=== PATIENT | male | born 1965 | race African-American/Black ===

== ENCOUNTER 2017-09-06 17:21 | Emergency (ER) | payer OTHER ==
[~2017-09-06] VITALS: Ht 185.4 cm; Wt 105.0 kg
[2017-09-06 20:46] LABS: HEMATOCRIT 43.9 % (38.0-50.0); HEMOGLOBIN 14.1 G/DL (12.5-16.6); MCH 26.1 PG (29.0-34.0); MCHC 32.1 G/DL (30.0-36.0); MCV 81.3 FL (86-99); PLATELET COUNT 244 K/uL (156-360); RBC DIS.WIDTH-CV 15.7 % (11.8-14.6); RBC DIS.WIDTH-SD 46.4 % (39-53); WHITE BLOOD COUNT 5.3 K/uL (4.1-10.2)
[2017-09-06 20:55] LABS: ALBUMIN 4.5 g/dL (3.2-4.8); CHLORIDE 106 mEq/L (99-109); POTASSIUM 4.1 mEq/L (3.7-5.4); SODIUM 139 mEq/L (136-147)
[2017-09-06 20:58] LABS: GLUCOSE 94 mg/dL (70-99); TOTAL PROTEIN 8.6 g/dL (6.4-8.3)
[2017-09-06 21:00] LABS: TOTAL BILIRUBIN 0.6 mg/dL (0.0-1.0)
[2017-09-06 21:01] LABS: ALKALINE PHOSPHATASE 63 IU/L (3-129); CREATININE 1.1 mg/dL (0.6-1.3); GFR ESTIMATE (CALCULATED) > 59 mL/min/ (58.99-99999)
[2017-09-06 21:02] LABS: UREA NITROGEN (BUN) 16 mg/dL (9-23)
[2017-09-06 21:03] LABS: AST (GOT) 30 IU/L (2-34)
[2017-09-06 21:04] LABS: ALT (GPT) 38 IU/L (3-49)
[2017-09-06 21:05] LABS: LIPASE 39 U/L (1.0-51.0)
[2017-09-06 21:58] LABS: APPEARANCE CLEAR ((CLEAR)); BILIRUBIN NEGATIVE; BLOOD NEGATIVE; COLOR STRAW ((YELLOW)); GLUCOSE (STRIP) NEGATIVE; KETONES NEGATIVE; LEUKOCYTES NEGATIVE; NITRITE NEGATIVE; PROTEIN (STRIP) NEGATIVE; SPECIFIC GRAVITY 1.031 (1.000-1.030); UCUL ADDED? NO; UROBILINOGEN 0.2 MG/DL (0.2-1.0)
[2017-09-06 22:00] VITALS: BP 148/82
== END 2017-09-06 22:01 | disposition home or self-care (01) ==
LOC: EME 17:21
PROVIDERS: Physician Assistant
DX: K42.9 Umbilical hernia without obstruction or gangrene (principal); I10 Essential (primary) hypertension; K21.9 Gastro-esophageal reflux disease without esophagitis
CPT/HCPCS: 74177; 80053; 81003; 83690; 85027; 99281; 99284; J7030

== ENCOUNTER → 2017-10-06 | Outpatient (CLI) | payer OTHER ==
[~2017-10-06] MED LIST: AMLOD-VALSA-HC1 EAC1 PO; CELEXA10 MG PO; ERGOCALCIF50000 UNIT PO; PRILOSEC20 MG PO; TYLENOL REGULA325 MG PO; VIAGRA50 MG PO
== END | disposition home or self-care (01) ==
LOC: CDC 12:19
DX: Z01.810 Encounter for preprocedural cardiovascular examination (principal); K42.9 Umbilical hernia without obstruction or gangrene; R94.31 Abnormal electrocardiogram [ECG] [EKG]
CPT/HCPCS: 93000

== ENCOUNTER 2017-10-12 05:28 | Day surgery (SDC) | payer OTHER ==
[~2017-10-12] VITALS: Ht 185.4 cm; Wt 102.1 kg
[2017-10-12 08:28] VITALS: BP 139/94
[2017-10-12] MEDS ORDERED: ONDANSETRON HCL8 MG PO (11:17)
[2017-10-12] MEDS ORDERED: COLACE100 MG PO (11:17)
[2017-10-12] MEDS ORDERED: DILAUDID4 MG PO (11:17)
[2017-10-12 12:55] VITALS: BP 167/69
[2017-10-12 13:56] VITALS: BP 143/91; BP 163/76
== END 2017-10-12 14:00 | disposition home or self-care (01) ==
LOC: SDC 05:28
PROC: 0WUF4JZ Supplement Abdominal Wall with Synthetic Substitute, Percutaneous Endoscopic Approach (ICD-10-PCS; principal; 2017-10-12)
DX: K42.9 Umbilical hernia without obstruction or gangrene (principal); K66.0 Peritoneal adhesions (postprocedural) (postinfection); I10 Essential (primary) hypertension; G47.33 Obstructive sleep apnea (adult) (pediatric); F41.9 Anxiety disorder, unspecified; K21.9 Gastro-esophageal reflux disease without esophagitis; Z72.0 Tobacco use
CPT/HCPCS: 81003; C1781; J0131; J0690; J2250; J2405; J2710; J2765; J7643